=== PATIENT | male | born 1995 | race Caucasian/White ===

== ENCOUNTER 2017-08-23 19:20 | Emergency (ER) | payer OTHER ==
[2017-08-23 19:36] VITALS: BP 137/74
[2017-08-23] MEDS ORDERED: Ibuprofen TAB* 400 MG PO ONE (20:56)
--- NOTE | 2017-08-23 20:56 | UC ---
Throat Pain/Nasal Tree HPI - HPI Summary HPI Summary: 22 y/o male presents to the urgent care c/o sore throat, lack of appetite, chills and low grade fever since yesterday. Pt states pain w/ swallowing is 6/ 10. He took Motrin 2 tabs PO this morning at 1100 to alleviate symptoms. He also has a rash in the Rt side of upper lip w/ yellowish crusting. Pt denies THOMPSON , neck pain, dizziness, SOB, chest pain, abdominal pain, N/V/D. Pt is UTD w/ all vaccines for his age. - History of Current Complaint Chief Complaint: UCGeneralIllness Stated Complaint: SORE THROAT Time Seen by Provider: 08/23/17 20:38 Hx Obtained From: Patient Onset/Duration: Gradual Onset, Lasting Days - 2 days, Still Present, Worse Since - today Severity: Moderate Pain Intensity: 6 Pain Scale Used: 0-10 Numeric Cough: None Associated Signs & Symptoms: Positive: Dysphagia, Fever Related History: Seasonal Allergies - Epiglottits Risk Factors Epiglottis Risk Factors: Negative - Allergies/Home Medications Allergies/Adverse Reactions: Allergies Allergy/AdvReac Type Severity Reaction Status Date / Time No Known Allergies Allergy Unverified 08/23/17 19:37 Home Medications: Home Medications Methylphenidate TAB* [Ritalin TAB*] 20 mg PO DAILY PRN 08/23/17 [History Confirmed 08/23/17] PMH/Surg Hx/FS Hx/Imm Hx Previously Healthy: Yes Cardiovascular History: Hypertension Respiratory History: Asthma Other Respiratory History: allergic rhinitis Other Psychological History: ADHD - Surgical History Surgical History: Yes Surgery Procedure, Year, and Place: knee repair, 2017 - Family History Known Family History: Positive: Hypertension - Social History Occupation: Employed Full-time Lives: With Family Alcohol Use: Weekly Alcohol Amount: 8-12 each time. several times a week Substance Use Type: Marijuana Smoking Status (MU): Light Every Day Tobacco Smoker - Immunization History Vaccination Up to Date: Yes Review of Systems Constitutional: Fever Skin: Negative Eyes: Negative ENT: Sore Throat Respiratory: Negative Cardiovascular: Negative Gastrointestinal: Negative Genitourinary: Negative Motor: Negative Neurovascular: Negative Musculoskeletal: Negative Neurological: Negative Psychological: Negative Is Patient Immunocompromised?: No All Other Systems Reviewed And Are Negative: Yes Physical Exam - Summary Physical Exam Summary: VITAL SIGNS: Reviewed. GENERAL: Patient is a well developed and nourished male who is sitting comfortable in the examining table. Patient is not in any acute respiratory distress. HEAD AND FACE: No signs of trauma. No ecchymosis, hematomas or skull depressions. No sinus tenderness. EYES: PERRLA, EOMI x 2, No injected conjunctiva, no nystagmus. No photophobia. EARS: Hearing grossly intact. Ear canals and tympanic membranes are within normal limits. MOUTH: Positive pharynx with erythema, exudates, palatal petechiae. B/L tonsillar enlargement with exudate. Uvula in midline. NECK: Supple, trachea is midline, Positive anterior cervical lymphadenopathy, no JVD, no carotid bruit, no c-spine tenderness, neck with full ROM. No meningeal signs, no Kernig's or brudzinskis signs. CHEST: Symmetric, no tenderness at palpation LUNGS: Clear to auscultation bilaterally. No wheezing or crackles. CVS: Regular rate and rhythm, S1 and S2 present, no murmurs or gallops appreciated. ABDOMEN: Soft, non-tender. No signs of distention. No rebound no guarding, and no masses palpated. Bowel sounds are normal. EXTREMITIES: FROM in all major joints, no edema, no cyanosis or clubbing. NEURO: Alert and oriented x 3. No acute neurological deficits. Speech is normal and follows commands. SKIN: Dry and warm Triage Information Reviewed: Yes Vital Signs: Initial Vital Signs Temp 100.8 F 08/23/17 19:27 Pulse 90 08/23/17 19:27 Resp 16 08/23/17 19:27 BP 137/74 08/23/17 19:27 Pulse Ox 100 08/23/17 19:27 Throat Pain/Nasal Course/Dx - Course Course Of Treatment: 22 y/o male presents to the urgent care c/o sore throat, lack of appetite, chills and low grade fever since yesterday. Pt states pain w/ swallowing is 6/10. He took Motrin 2 tabs PO this morning at 1100 to alleviate symptoms. He also has a rash in the Rt side of upper lip w/ yellowish crusting. Pt denies THOMPSON, neck pain, dizziness, SOB, chest pain, abdominal pain, N /V/D. Pt is UTD w/ all vaccines for his age.Hx obtained. Pt febrile w/ pharyngitis and impetigo on Rt side of upper lip on examiantion. Pt given Ibuprofe PO at the clinic for fever. Pt tolerated well medication. Rapid strep ordered: negative. However Pt's throat look very injected w/ exudate. Throat culture ordered to r/o other bacterial etioogies like M.Catarralis etc. Pt Rx Amoxicillin PO and advised to take it only if symptoms worsen or until Throat culture results. Pt also Rx Ibuprofen Po to alleviate symptoms and bactroban for the rash. Advised on hand washing to avoid spreading. Pt advised to rest, eat well and avoid strenuous exercise. If symptoms do not improve or worsen advised to return to the urgent care or f/u with her PCP for further evaluation and treatment. Pt understood and agreed - Differential Dx/Diagnosis Differential Diagnosis/HQI/PQRI: Mononucleosis, Otitis Media, Pharyngitis, Sinusitis, Tonsillitis, URI Provider Diagnoses: 1-Pharyngitis. 2-Fever. 3-Impetigo Discharge - Sign-Out/Discharge Documenting (check all that apply): Discharge/Admit/Transfer - D/C home - Discharge Plan Condition: Stable Disposition: HOME Prescriptions: Amoxicillin PO (*) [Amoxicillin 500 MG CAP*] 500 mg PO Q12H #20 cap Ibuprofen TAB* [Motrin TAB* 800 MG] 800 mg PO Q6H PRN #30 tab PRN Reason: Sore Throat Mupirocin 2% OINT* [Bactroban 2 % Oint*] 1 applic TOPICAL BID #1 tube Mupirocin 2% OINT* [Bactroban 2 % Oint*] 1 applic TOPICAL BID #1 tube Patient Education Materials: Impetigo (DC), Pharyngitis (ED) Referrals: Stephen Gramajo MD [Primary Care Provider] - 2 Days Additional Instructions: 1- Please start taking Amoxicillin PO only if symptoms worsen or throat culture results are positive for bacterial infection. Throat culture was sent to lab you will be notified of the result.. 2-Please take ibuprofen PO q6-8hrs prn as instructed after meals to alleviate pain and swelling. Increase fluid intake, eat well, rest and avoid strenuous exercise 3-If symptoms do not improve or worsen please return to the urgent care or f/u with your PCP for further evaluation and treatment. 4- apply Bactroban oint around the rash in your lips - Billing Disposition and Condition Condition: STABLE Disposition: Home
--- NOTE | 2017-08-26 17:10 | UC ---
- Progress Note Progress Note: please call patient and advise that throat culture does not show strep infection --and antibiodics are not indicated Discharge - Sign-Out/Discharge Documenting (check all that apply): Post-Discharge Follow Up - Discharge Plan Condition: Stable Disposition: HOME Prescriptions: Amoxicillin PO (*) [Amoxicillin 500 MG CAP*] 500 mg PO Q12H #20 cap Ibuprofen TAB* [Motrin TAB* 800 MG] 800 mg PO Q6H PRN #30 tab PRN Reason: Sore Throat Mupirocin 2% OINT* [Bactroban 2 % Oint*] 1 applic TOPICAL BID #1 tube Mupirocin 2% OINT* [Bactroban 2 % Oint*] 1 applic TOPICAL BID #1 tube Patient Education Materials: Impetigo (DC), Pharyngitis (ED) Referrals: Stephen Gramajo MD [Primary Care Provider] - 2 Days Additional Instructions: 1- Please start taking Amoxicillin PO only if symptoms worsen or throat culture results are positive for bacterial infection. Throat culture was sent to lab you will be notified of the result.. 2-Please take ibuprofen PO q6-8hrs prn as instructed after meals to alleviate pain and swelling. Increase fluid intake, eat well, rest and avoid strenuous exercise 3-If symptoms do not improve or worsen please return to the urgent care or f/u with your PCP for further evaluation and treatment. 4- apply Bactroban oint around the rash in your lips - Billing Disposition and Condition Condition: STABLE Disposition: Home
== END 2017-08-23 22:03 | disposition home or self-care (01) ==
LOC: UCEAST 19:20
DX: J02.9 Acute pharyngitis, unspecified (principal); R50.9 Fever, unspecified; L01.00 Impetigo, unspecified; I10 Essential (primary) hypertension; F17.290 Nicotine dependence, other tobacco product, uncomplicated
CPT/HCPCS: 87070; 87651; 99212; A9270-GY; G0463

== ENCOUNTER 2017-08-26 17:30 | Observation (INO) | payer OTHER ==
[2017-08-26] MEDS ORDERED: NS 0.9% 1000 ML* 2,000 ML IV ONE (17:57)
[2017-08-26 18:10] LABS: ABS Basophils 0.1 10^3/ul (0-0.2); ABS Eosinophils 0 10^3/ul (0-0.6); ABS Lymphocytes 0.3 10^3/ul (1.0-4.8); ABS Monocytes 0.5 10^3/ul (0-0.8); ABS Neutrophils 19.5 10^3/ul (1.5-7.7); ABS Nucleated RBC 0 10^3/ul; Eosinophil % 0 % (0-6); Hematocrit 37 % (42-52); Hemoglobin 12.5 g/dl (14.0-18.0); Lymphocyte % 1.7 % (25-47); Mean Corpuscular HGB Conc 34 g/dl (31-36); Mean Corpuscular Hemoglobin 30 pg (27-31); Mean Corpuscular Volume 88 fL (80-94); Mean Platelet Volume 7.5 um3 (7.4-10.4); Nucleated Red Blood Cells % 0; Platelet Count 251 10^3/ul (150-450); Red Blood Count 4.19 10^6/ul (4.00-5.40); Red Cell Distribution Width 13 % (10.5-15); White Blood Count 20.4 10^3/ul (3.5-10.8)
[2017-08-26 18:20] LABS: INR 1.41 (0.77-1.02)
[2017-08-26 18:30] LABS: EGFR Non-African American 76.5 (>60)
[2017-08-26] MEDS ORDERED: Lidocaine 2% VISCOUS* 15 ML UDC SWISH SPIT ONE (18:57)
[2017-08-26] MEDS ORDERED: Ketorolac INJ* 30 MG/ML 1 ML VIAL IV PUSH ONE (18:57)
[2017-08-26] MEDS ORDERED: Clindamycin 600 MG IVPREMIX(* 600 MG/50 ML SDV IV ONE (18:58)
[2017-08-26] MEDS ORDERED: Bacitracin OINTMENT* 0.5% 0.5 oz TUBE TOPICAL SCH (22:00)
[2017-08-26] MEDS ORDERED: Ibuprofen TAB* 600 MG PO PRN (22:06)
[2017-08-26] MEDS: D5W 1/2 NS KCl 20 Meq 1000 ML* 1,000 ML IV SCH (22:17)
[2017-08-26] MEDS: Magic Mouth Was-BEN/MAAL/LIDO SWISH SPIT SCH (22:36)
[2017-08-26] MEDS: Mupirocin 2% OINT* TUBE TOPICAL SCH (22:41)
[2017-08-26] MEDS ORDERED: cefTRIAXone VIAL(*) 250 MG VIAL IM ONE (22:48)
[2017-08-26] MEDS ORDERED: Azithromycin TAB* 250 MG PO ONE (22:58)
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
[2017-08-27] MEDS: D5W 1/2 NS KCl 20 Meq 1000 ML* 1,000 ML IV SCH ×3 (02:14→12:46)
[2017-08-27 06:54] LABS: EGFR Non-African American 116.5 (>60)
[2017-08-27] MEDS ORDERED: Clindamycin 600 MG IVPREMIX(* 600 MG/50 ML SDV IV SCH (07:30)
[2017-08-27] MEDS ORDERED: predniSONE TAB* 50 MG PO SCH (09:00)
[2017-08-27] MEDS: Magic Mouth Was-BEN/MAAL/LIDO SWISH SPIT SCH ×3 (09:32→16:49)
[2017-08-27] MEDS: Mupirocin 2% OINT* TUBE TOPICAL SCH ×3 (09:37→16:49)
[2017-08-27] MEDS: Clindamycin 600 MG IVPREMIX(* 600 MG/50 ML SDV IV SCH ×2 (14:17→18:45)
[2017-08-27 17:16] VITALS: BP 153/69
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
[2017-08-27] MEDS ORDERED: Ciprofloxacin TAB* 500 MG PO SCH (21:00)
== END 2017-08-27 19:44 | disposition home or self-care (01) ==
LOC: ED 17:30 → MCHPEDS 19:35
PROVIDERS: ADMIT Pediatrics; ATTEND Pediatrics
DX: J36 Peritonsillar abscess (principal); E86.0 Dehydration; K13.70 Unspecified lesions of oral mucosa; Z72.51 High risk heterosexual behavior; R50.9 Fever, unspecified; R25.2 Cramp and spasm; R53.83 Other fatigue; F17.210 Nicotine dependence, cigarettes, uncomplicated; R59.9 Enlarged lymph nodes, unspecified; J45.20 Mild intermittent asthma, uncomplicated; F90.9 Attention-deficit hyperactivity disorder, unspecified type; Z79.899 Other long term (current) drug therapy
CPT/HCPCS: 36415; 80048; 80053; 80074; 83605; 85025; 85610; 85730; 86140; 86308; 86592; 87040; 87076; 87181; 87185; 87205; 87491; 87536; 87591; 96361; 96365; 96366; 96372; 96375; 99284; 99406; A9270-GY; G0378; J0696; J1885; J7512

== ENCOUNTER 2018-01-02 23:48 | Inpatient (IN) | payer OTHER ==
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
[2018-01-03] MEDS ORDERED: Haloperidol INJ IV/IM* 5 MG/ML AMP ONE (00:50)
[2018-01-03] MEDS ORDERED: LORazepam INJ* 2 MG/ML 1 ML VIAL ONE (00:50)
[2018-01-03] MEDS ORDERED: diPHENhydraMINE PO* 50 MG ONE (00:50)
[2018-01-03] MEDS ORDERED: Nicotine PATCH 21 MG/24 HR* PATCH ONE (00:57)
[2018-01-03] MEDS ORDERED: diPHENhydraMINE PO* 50 MG PO ONE (00:59)
[2018-01-03] MEDS ORDERED: Haloperidol INJ IV/IM* 5 MG/ML AMP IM ONE (00:59)
[2018-01-03] MEDS ORDERED: LORazepam INJ* 2 MG/ML 1 ML VIAL IM ONE (00:59)
[2018-01-03] MEDS ORDERED: Mouth Piece, Nicotine* 1 EACH CARTRIDGE ONE (01:02)
[2018-01-03] MEDS ORDERED: Nicotine Inhaler* 10 MG AMP ONE (01:03)
[2018-01-03] MEDS: Nicotine Inhaler* 10 MG AMP INH PRN (01:09)
[2018-01-03 01:23] LABS: ABS Basophils 0.1 10^3/ul (0-0.2); ABS Eosinophils 0.1 10^3/ul (0-0.6); ABS Lymphocytes 1.6 10^3/ul (1.0-4.8); ABS Monocytes 0.7 10^3/ul (0-0.8); ABS Neutrophils 8.9 10^3/ul (1.5-7.7); ABS Nucleated RBC 0 10^3/ul; Eosinophil % 1.2 % (0-6); Hematocrit 40 % (42-52); Hemoglobin 13.6 g/dl (14.0-18.0); Lymphocyte % 13.9 % (25-47); Mean Corpuscular HGB Conc 34 g/dl (31-36); Mean Corpuscular Hemoglobin 30 pg (27-31); Mean Corpuscular Volume 88 fL (80-94); Mean Platelet Volume 7.6 fL (7.4-10.4); Nucleated Red Blood Cells % 0; Platelet Count 256 10^3/ul (150-450); Red Blood Count 4.57 10^6/ul (4.00-5.40); Red Cell Distribution Width 13 % (10.5-15); White Blood Count 11.4 10^3/ul (3.5-10.8)
[2018-01-03] MEDS ORDERED: Mouth Piece, Nicotine* 1 EACH CARTRIDGE INH ONE (02:00)
[2018-01-03 06:05] LABS: Urine Appearance Cloudy; Urine Blood Negative (Negative); Urine Color Yellow; Urine Ketones Trace (Negative); Urine Protein 1+(30 mg/dL) (Negative); Urine Red Blood Cell Trace(0-2/hpf) (Absent); Urine Specific Gravity 1.033 (1.010-1.030); Urine Urobilinogen Negative (Negative); Urine White Blood Cell Trace(0-5/hpf) (Absent)
[2018-01-03] MEDS ORDERED: OLANzapine TAB*ODT* 10 MG TAB PO ONE ×2 (11:47→17:06)
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
--- NOTE | 2018-01-03 17:18 | RAD ---
INDICATION: Head injury COMPARISON: None. TECHNIQUE: Contiguous axial sections of the brain were obtained from the skull base to the vertex without contrast. FINDINGS: The ventricles, cisterns and sulci are within normal limits. The gustafson-white matter differentiation is adequately maintained and there is no sulcal effacement. No significant focal abnormality or mass effect is present. There is no evidence for intracranial hemorrhage. No significant focal osseous abnormality is present. The visualized portion of the paranasal sinuses appear clear. The mastoid air cells are well aerated bilaterally. IMPRESSION: Normal CT of the brain.
[2018-01-03] MEDS: QUEtiapine TAB* 100 MG PO SCH (19:57)
--- NOTE | 2018-01-04 06:36 | ED ---
Progress - Progress Note Progress Note: The pt is a 22 y.o male pt who is a sign out from Dr. Allison. Course/Dx - Course Course Of Treatment: The pt will be signed out to Dr. Allison, pending MHE and Trasnfer disposition. The dx will be aggressive behavior. - Diagnoses Provider Diagnoses: Aggressive behavior Discharge - Sign-Out/Discharge Documenting (check all that apply): Sign-Out Patient, Receiving Sign-Out Signing out patient TO: Demarco Allison Receiving patient FROM: Demarco Allison - Discharge Plan Condition: Stable Referrals: Stephen Gramajo MD [Primary Care Provider] - - Attestation Statements Document Initiated by Scribe: Yes Documenting Scribe: Brigido Duran Provider For Whom Scribe is Documenting (Include Credential): Dr. Consuelo Cameron Scribe Attestation: Brigido Jauregui, scribed for Dr. Consuelo Cameron on 01/04/18 at 0639.
--- NOTE | 2018-01-04 07:08 | ED ---
Progress - Progress Note Progress Note: 01/02/2018 The pt is a 22 y.o male pt who is a sign out from Dr. Allison. 01/03/2018 07:00 hrs- Receiving pt sign out from Dr. Nisha MD due to pending MHE Dr. Perry evaluated the pt in the MHU 11:50-The pt will be admitted to the [facility] with a final Dx of unspecified psychotic disorder - Consult/PCP Time Called: 10:03 Re-Evaluation - Re-Evaluation 1 Re-Evaluation Time: 02:05 Change: Improved - He is now resting comfortably. 2 Re-Evaluation Time: 04:23 Change: Improved - Patient continues to rest with stable vital signs. Course/Dx - Diagnoses Provider Diagnoses: Aggressive behavior, Unspecified psychosis Discharge - Sign-Out/Discharge Documenting (check all that apply): Sign-Out Patient Receiving patient FROM: Consuelo Cameron - 07:00 hrs - Discharge Plan Condition: Stable Disposition: ADMITTED TO [facility] Referrals: Stephen Gramajo MD [Primary Care Provider] - - Attestation Statements Document Initiated by Scribe: Yes Documenting Scribe: Jessie Nunez Provider For Whom Scribe is Documenting (Include Credential): Dr. Demarco Allison MD Scribe Attestation: Jessie Jauregui scribed for Dr. Demarco Allison MD on 01/04/18 at 1201.
[2018-01-04] MEDS ORDERED: Al Hydrox/Mg Hydrox/Simet LIQ* 30 ML UDC PO PRN (11:16)
[2018-01-04] MEDS ORDERED: Acetaminophen TAB* 325 MG PO PRN (11:16)
[2018-01-04] MEDS ORDERED: Ibuprofen TAB* 800 MG PO PRN (11:17)
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
[2018-01-04] MEDS: QUEtiapine TAB* 100 MG PO SCH (22:42)
[2018-01-04] MEDS: Propranolol TAB* 20 MG PO SCH (22:42)
[2018-01-05] MEDS: Propranolol TAB* 20 MG PO SCH ×2 (11:14→23:13)
[2018-01-05] MEDS: Nicotine Inhaler* 10 MG AMP INH PRN ×2 (13:57→20:42)
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
[2018-01-05] MEDS ORDERED: LORazepam TAB(*) 1 MG PO PRN (17:13)
[2018-01-05] MEDS: QUEtiapine TAB* 100 MG PO SCH (23:14)
[2018-01-06] MEDS: Nicotine Inhaler* 10 MG AMP INH PRN ×2 (00:40→13:42)
[2018-01-06 08:53] VITALS: BP 154/88
[2018-01-06] MEDS: Propranolol TAB* 20 MG PO SCH (08:55)
[2018-01-06] MEDS ORDERED: QUEtiapine XR TAB* 50 MG PO ONE (12:40)
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
== END 2018-01-06 17:50 | disposition home or self-care (01) | DRG 885 ==
LOC: ED 23:48 → BSU 01-04 11:16
PROVIDERS: ADMIT Psychiatry & Neurology Psychiatry; ATTEND Psychiatry & Neurology Psychiatry
DX: F29 Unspecified psychosis not due to a substance or known physiological condition (principal); R45.851 Suicidal ideations; F63.9 Impulse disorder, unspecified; F81.89 Other developmental disorders of scholastic skills; F90.9 Attention-deficit hyperactivity disorder, unspecified type; F12.10 Cannabis abuse, uncomplicated; F41.1 Generalized anxiety disorder; Z87.820 Personal history of traumatic brain injury; F10.10 Alcohol abuse, uncomplicated; J30.2 Other seasonal allergic rhinitis; Z81.8 Family history of other mental and behavioral disorders; R45.850 Homicidal ideations
CPT/HCPCS: 36415; 70450; 80053; 80061; 80307; 80320; 80329; 81003; 81015; 83036; 84443; 85025; 87086; 93005; 99222; 99238; 99284; A9270-GY; G0480; J1630; J2060

== ENCOUNTER 2018-04-20 19:00 | Inpatient (IN) | payer OTHER ==
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
[2018-04-20 19:39] LABS: ABS Basophils 0 10^3/ul (0-0.2); ABS Eosinophils 0.2 10^3/ul (0-0.6); ABS Lymphocytes 1.7 10^3/ul (1.0-4.8); ABS Monocytes 0.4 10^3/ul (0-0.8); ABS Neutrophils 3.6 10^3/ul (1.5-7.7); ABS Nucleated RBC 0 10^3/ul; Eosinophil % 3.3 %; Hematocrit 41 % (42-52); Hemoglobin 13.5 g/dl (14.0-18.0); Mean Corpuscular HGB Conc 33 g/dl (31-36); Mean Corpuscular Hemoglobin 30 pg (27-31); Mean Corpuscular Volume 89 fL (80-94); Mean Platelet Volume 7.8 fL (7.4-10.4); Nucleated Red Blood Cells % 0.1; Platelet Count 218 10^3/ul (150-450); Red Blood Count 4.57 10^6/ul (4.00-5.40); Red Cell Distribution Width 13 % (10.5-15)
[2018-04-20 19:56] LABS: ALT 48 U/L (7-52); AST 70 U/L (13-39); Albumin 4.5 g/dL (3.2-5.2); Albumin/Globulin Ratio 1.7 (1-3); Alkaline Phosphatase 55 U/L (34-104); Anion Gap 6 mmol/L (2-11); BUN/Creatinine Ratio 22.7 (8-20); Blood Urea Nitrogen 25 mg/dL (6-24); CO2 Carbon Dioxide 28 mmol/L (22-32); Calcium 9.4 mg/dL (8.6-10.3); Chloride 105 mmol/L (101-111); EGFR African American 103.3 (>60); EGFR Non-African American 85.3 (>60); Globulin 2.7 g/dL (2-4); Glucose 114 mg/dL (70-100); Sodium 139 mmol/L (135-145); Total Protein 7.2 g/dL (6.4-8.9)
[2018-04-20 20:30] LABS: Acetaminophen < 15 mcg/mL; Alcohol < 10 mg/dL (<10); Salicylate < 2.50 mg/dL (<30)
[2018-04-20 20:44] LABS: TSH (Thyroid Stimulating Horm) 2.51 mcIU/mL (0.34-5.60)
[2018-04-20] MEDS ORDERED: Nicotine Inhaler* 10 MG AMP INH ONE (21:40)
[2018-04-20] MEDS ORDERED: Mouth Piece, Nicotine* 1 EACH CARTRIDGE ONE (21:51)
[2018-04-20 22:35] LABS: Urine Appearance Clear; Urine Bilirubin Negative (Negative); Urine Blood Negative (Negative); Urine Color Yellow; Urine Glucose Negative (Negative); Urine Ketones Negative (Negative); Urine Nitrite Negative (Negative); Urine Protein Negative (Negative); Urine Specific Gravity 1.025 (1.010-1.030); Urine Urobilinogen Negative (Negative)
[2018-04-20 22:47] LABS: Barbiturates Urine Screen None Detected (None Detect); Benzodiazepine Urine Screen None Detected (None Detect); Urine Cannabinoids Screen None Detected (None Detect)
[2018-04-20] MEDS ORDERED: diPHENhydraMINE IV* 50 MG/ML 1 ml VIAL (BENADRYL) ONE (22:57)
[2018-04-20] MEDS ORDERED: LORazepam INJ* 2 MG/ML 1 ML VIAL IM ONE (22:58)
[2018-04-20] MEDS ORDERED: Haloperidol INJ IV/IM* 5 MG/ML AMP IM ONE (22:58)
[2018-04-20] MEDS ORDERED: hydrOXYzine IM* 50 MG/ML VIAL IM ONE (22:59)
[2018-04-20] MEDS ORDERED: LORazepam INJ* 2 MG/ML 1 ML VIAL ONE (23:05)
[2018-04-20] MEDS ORDERED: Haloperidol INJ IV/IM* 5 MG/ML AMP ONE (23:05)
[2018-04-20] MEDS ORDERED: Nicotine Inhaler* 10 MG AMP ONE (23:09)
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
[2018-04-20] MEDS ORDERED: diPHENhydraMINE IV* 50 MG/ML 1 ml VIAL (BENADRYL) IM ONE (23:24)
--- NOTE | 2018-04-21 07:14 | ED ---
Progress - Progress Note Progress Note: Receiving sign out from Dr. Cameron, pending transfer. Pt is admitted to Dr. Perry with a final dx of acute psychosis. Course/Dx - Diagnoses Provider Diagnoses: Acute psychosis - Provider Notifications Discussed Care Of Patient With: Ar Perry Time Discussed With Above Provider: 09:57 Instructed by Provider To: Admit As Inpatient Discharge - Sign-Out/Discharge Documenting (check all that apply): Patient Departure - Admit, Receiving Sign- Out Receiving patient FROM: Consuelo Cameron Patient Received Moderate/Deep Sedation with Procedure: No - Discharge Plan Condition: Stable [place] Referrals: Stephen Gramajo MD [Primary Care Provider] - - Attestation Statements Document Initiated by Scribe: Yes Documenting Scribe: Shy Jay Provider For Whom Scribe is Documenting (Include Credential): Tevin Lui MD Scribe Attestation: Shy Jauregui, scribed for Tevin Lui MD on 04/21/18 at 1000. Status of Scribe Document: Ready
[2018-04-21] MEDS ORDERED: Al Hydrox/Mg Hydrox/Simet LIQ* 30 ML UDC PO PRN (09:10)
[2018-04-21] MEDS ORDERED: Acetaminophen TAB* 325 MG PO PRN (09:10)
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
[2018-04-21] MEDS ORDERED: Propranolol TAB* 10 MG PO SCH (15:00)
[2018-04-21] MEDS ORDERED: OLANzapine TAB* 2.5 MG PO ONE (15:41)
[2018-04-21] MEDS ORDERED: Nicotine Inhaler* 10 MG AMP INH PRN (16:43)
[2018-04-21] MEDS ORDERED: Nicotine GUM* 2 MG PO PRN (16:43)
[2018-04-21] MEDS ORDERED: OLANzapine TAB* 5 MG PO SCH (21:00)
[2018-04-21] MEDS: OLANzapine TAB* 2.5 MG PO SCH (22:28)
[2018-04-21] MEDS: Propranolol TAB* 10 MG PO SCH (22:29)
--- NOTE | 2018-04-22 10:30 | PN ---
Subjective - Subjective Date of Service: 04/22/18 Service Type: 70737 Hosp care 35 min high complexity Subjective: Nursing Report: Patient most secluded to his room, no chemical restraints or PRNs. Slept overnight without incident. NOT attending group activities. CC: " I refuse to take medications" Patient refusing to shower despite significant body odor. Contact with mother was made. She is refusing to accept that there is something wrong with Viridiana and reported that he will fight until the end if he has to take medications. She mentioned that he will fight so much that he will be in detention. Mother stated he is not violent and said that being in the hospital made him punch and kicks things in the emergency room. Mother reported putting risperdal in his juice because he would refuse to take medications. Patient was interviewed in his room and also in the common room. Patient stated that he wishes he was playing hockey and doesnt need to be in the hospital. He reported having an adequate appetite and sleep. Patient refused EEG this morning. He has been inappropriate with female staff. Objective - Appearance Dysmorphic Features: No Hygiene: Mal-odorous Grooming: Disheveled - Behavior Psychomotor Activities: Abnormal-Increased Exhibits Abnormal Movement: Yes - Attitude and Relatedness Attitude and Relatedness: Withdrawn Eye Contact: Poor - Speech Quality: Unpressured Latencies: Short Quantity: Terse - Mood Patient's Decription of Mood: "Okay" - Affect Observed Affect: Constricted Affect Consistent with: Dysphoria - Thought Process Patient's Thought Process: Loose Associations, Tangential Thought Content: No Passive Wish, No Suicidal Planning, No Homicidal Ideation, No Paranoid Ideation - Sensorium Experiencing Hallucinations: Yes Type of Hallucinations: Visual: No, Auditory: Yes, Command: No - Level of Consciousness Level of Consciousness: Alert Orientation: Yes Intact, Yes Orientated to Time, Yes Orientated to Place, Yes Orientated to Person - Impulse Control Impulse Control: Impaired - Insight and Judgement Insight and Judgement: Impaired - Group Participation Particating in Group Activities: No - Medication Management Medication Management Adherence: No Assessment - Assessment Merits Inpatient Hospitalization: For Immediate Safety Clinical Impression: 22 year old male with prior hospitalization and refusing medications, refusing to shower, acting bizarre responding to internal stimuli Plan - Plan Treatment Plan: Name: VIRIDIANA ROJO Birthdate: 1995 [id number] # Justification for Admission: For immediate safety per outlined in the [facility] Hygiene Code. # Involuntary admission. The patient requires inpatient admission at this time to assure safety, receive treatment and work toward stabilization. # Ammonia and AST levels increased medicine consulted and recommend hepatitis panel #Continue Q15 minute observation. #Continue propranolol 5mg TID #Increase Zyprexa 5mg BID #Encourage shower #Goals before discharge include: Improve Hygiene, increase organization of thought process. Continued Medication Management: Start Medication Medications: Current Medications Acetaminophen (Tylenol Tab*) 650 mg PO Q4H PRN PRN Reason: for pain; or Temp >101 F Al Hydrox/Mg Hydrox/Simethicone (Maalox Plus*) 30 ml PO Q4H PRN PRN Reason: INDIGESTION Diphenhydramine HCl (Benadryl Po*) 50 mg PO Q6H PRN PRN Reason: AGITATION Haloperidol (Haldol Tab*) 5 mg PO Q6H PRN PRN Reason: AGITATION Lorazepam (Ativan Tab(*)) 2 mg PO Q6H PRN PRN Reason: ANXIETY Nicotine (Nicotine Inhaler*) 10 mg INH Q2H PRN PRN Reason: CRAVING Nicotine Polacrilex (Nicotine Gum*) 2 mg PO Q2H PRN PRN Reason: CRAVING Olanzapine (Zyprexa Tab*) 2.5 mg PO BID [facility] Last Admin: 04/21/18 22:28 Dose: Not Given Propranolol HCl (Inderal Tab*) 5 mg PO TID [facility] Last Admin: 04/21/18 22:29 Dose: Not Given - Discharge Plan Discharge Plan: Inpatient Hospitalization
[2018-04-22] MEDS: Propranolol TAB* 10 MG PO SCH ×3 (10:36→20:48)
[2018-04-22] MEDS: OLANzapine TAB* 2.5 MG PO SCH (10:36)
[2018-04-22] MEDS: diPHENhydraMINE PO* 50 MG PO PRN (18:56)
[2018-04-22] MEDS: LORazepam TAB(*) 1 MG PO PRN (18:57)
[2018-04-22] MEDS: Haloperidol TAB* 5 MG PO PRN (18:57)
[2018-04-22] MEDS: OLANzapine TAB* 5 MG PO SCH (20:48)
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
[2018-04-23] MEDS: OLANzapine TAB* 5 MG PO SCH ×2 (11:21→20:56)
[2018-04-23] MEDS: Propranolol TAB* 10 MG PO SCH ×3 (11:21→20:56)
[2018-04-23 11:22] LABS: Folate 11.15 ng/mL (>3.99)
[2018-04-23 12:46] LABS: Hepatitis B Surface Antigen Nonreactive (Nonreactive)
[2018-04-23 13:15] LABS: Hepatitis C Antibody Nonreactive (Nonreactive)
[2018-04-24] MEDS: OLANzapine TAB* 5 MG PO SCH (12:04)
[2018-04-24] MEDS: Propranolol TAB* 10 MG PO SCH ×3 (12:04→20:41)
[2018-04-24] MEDS ORDERED: OLANzapine TAB*ODT* 10 MG TAB ONE (15:53)
[2018-04-24] MEDS ORDERED: OLANzapine TAB* 10 MG PO ONE (16:15)
[2018-04-24] MEDS ORDERED: Olanzapine INJ(NF) 10 MG VIAL IM ONE (17:00)
[2018-04-24] MEDS ORDERED: LORazepam INJ* 2 MG/ML 1 ML VIAL ONE (17:44)
[2018-04-24] MEDS ORDERED: diPHENhydraMINE IV* 50 MG/ML 1 ml VIAL (BENADRYL) ONE (17:45)
[2018-04-24] MEDS ORDERED: Haloperidol INJ IV/IM* 5 MG/ML AMP ONE (17:45)
[2018-04-24] MEDS ORDERED: Haloperidol INJ IV/IM* 5 MG/ML AMP IM ONE (18:30)
[2018-04-24] MEDS ORDERED: LORazepam INJ* 2 MG/ML 1 ML VIAL IM ONE (18:30)
[2018-04-24] MEDS ORDERED: diPHENhydraMINE IV* 50 MG/ML 1 ml VIAL (BENADRYL) IM ONE (18:30)
[2018-04-24] MEDS: OLANzapine TAB*ODT* 5 MG PO SCH (20:45)
[2018-04-25] MEDS: OLANzapine TAB*ODT* 5 MG PO SCH ×2 (11:50→21:27)
[2018-04-25] MEDS: Propranolol TAB* 10 MG PO SCH ×3 (11:50→21:27)
--- NOTE | 2018-04-25 18:08 | PN ---
Subjective - Subjective Date of Service: 04/24/18 Service Type: [id number] Hosp care 15 min low complexity Subjective: Viridiana has been a serious management problem on the unit due to physically and verbally aggressive behaviors requiring multiple stat meds. He had scared female staffs and patients by attempting to inappropriate sexual contacts. Continues to respond to internal stimuli and talks to self loudly while in the milieu. His personal hygiene is very poor with strong body odors. Punched the olivera making holes. Remains a serious risk for violence. Objective - Appearance Appearance: Well Developed/Nourished, Healthy Appearing Dysmorphic Features: No Hygiene: Mal-odorous Grooming: Disheveled - Behavior Psychomotor Activities: Abnormal-Increased Exhibits Abnormal Movement: No - Attitude and Relatedness Attitude and Relatedness: Dismissive Eye Contact: Poor - Speech Quality: Pressured Latencies: Short Quantity: Terse - Mood Patient's Decription of Mood: "Angry" - Affect Observed Affect: Tense - Thought Process Patient's Thought Process: Disorganized, Tangential Thought Content: Yes Paranoid Ideation, No Passive Wish, No Suicidal Planning, No Homicidal Ideation - Sensorium Experiencing Hallucinations: Yes Type of Hallucinations: Visual: No, Auditory: Yes, Command: Yes - Level of Consciousness Level of Consciousness: Alert Orientation: Yes Orientated to Place, Yes Orientated to Person, No Intact, No Orientated to Time - Impulse Control Impulse Control: Impaired - Insight and Judgement Insight and Judgement: Impaired - Group Participation Particating in Group Activities: No - Medication Management Medication Management Adherence: No Assessment - Assessment Merits Inpatient Hospitalization: For Immediate Safety, For Stabilization Clinical Impression: 22 year old male with prior hospitalization and refusing medications brought to the hospital after mobile crisis unit was called. He is refusing medications, to shower, and is responding to internal stimuli. In the ED he punched cardiac monitors and last evening punched a hole in the wall. Plan - Plan Treatment Plan: Name: VIRIDIANA ROOJ Birthdate: 1995 [id number] # Patient poses a risk of harm towards others The patient requires inpatient admission at this time to assure safety, receive treatment and work toward stabilization. # Hepatitis panel and Vit B12 and folate. Medicine was consulted and recommends no further work up and suggested outpatient follow up with PCP. #Continue Q15 minute observation. #Continue propranolol 5mg TID # Continue Zyprexa 5mg BID #Follow up on lab results B12, folate, HIV, Hepatitis panel #Mother expected to come today for family meeting around noon #Encourage shower and medication compliance #Goals before discharge include: Decrease aggression, improve activities of daily living, medication compliance . Vital Signs 04/22/18 04/22/18 04/22/18 11:32 18:56 18:57 Respiratory 16 20 20 Rate 04/22/18 23:49 Respiratory 18 Rate Laboratory Results - last 24 hr 04/22/18 04/22/18 04/22/18 07:26 07:26 07:26 Hemoglobin A1c 5.4 Triglycerides 106 Cholesterol 169 LDL Cholesterol 102 HDL Cholesterol 46.0 Syphilis IgG Antibody Nonreactive Continued Medication Management: Continue Outpt Medication Medications: Current Medications Acetaminophen (Tylenol Tab*) 650 mg PO Q4H PRN PRN Reason: for pain; or Temp >101 F Al Hydrox/Mg Hydrox/Simethicone (Maalox Plus*) 30 ml PO Q4H PRN PRN Reason: INDIGESTION Diphenhydramine HCl (Benadryl Po*) 50 mg PO Q6H PRN PRN Reason: AGITATION Last Admin: 04/22/18 18:56 Dose: 50 mg Haloperidol (Haldol Tab*) 5 mg PO Q6H PRN PRN Reason: AGITATION Last Admin: 04/22/18 18:57 Dose: 5 mg Lorazepam (Ativan Tab(*)) 2 mg PO Q6H PRN PRN Reason: ANXIETY Last Admin: 04/22/18 18:57 Dose: 2 mg Nicotine (Nicotine Inhaler*) 10 mg INH Q2H PRN PRN Reason: CRAVING Nicotine Polacrilex (Nicotine Gum*) 2 mg PO Q2H PRN PRN Reason: CRAVING Olanzapine (Zyprexa * Tab Odt) 5 mg PO BID [facility] Last Admin: 04/25/18 11:50 Dose: Not Given Propranolol HCl (Inderal Tab*) 5 mg PO TID [facility] Last Admin: 04/25/18 14:16 Dose: Not Given - Discharge Plan Discharge Plan: Outpatient Follow Up Outpatient Program: [facility]
[2018-04-26] MEDS: OLANzapine TAB*ODT* 5 MG PO SCH ×2 (09:40→21:32)
[2018-04-26] MEDS: Propranolol TAB* 10 MG PO SCH ×3 (09:40→21:32)
--- NOTE | 2018-04-26 10:49 | PN ---
Subjective - Subjective Date of Service: 04/26/18 Service Type: [id number] Hosp care 25 min moderate complexity Subjective: CC " I am not taking medications." Patient was seen in the common room. He is refusing medications. Over the weekend he punched a hole in the wall during the time his parents were visiting. He changed his clothing over the weekend. He refused taking a shower or interacting with others. He was sexually inappropriate with female staff requesting oral sex and attempting to kiss female staff member. At this time he is refusing to answer further questions. Objective - Appearance Appearance: Healthy Appearing Dysmorphic Features: No Hygiene: Mal-odorous Grooming: Disheveled - Behavior Psychomotor Activities: Abnormal-Increased Exhibits Abnormal Movement: No - Attitude and Relatedness Attitude and Relatedness: Guarded Eye Contact: Poor - Speech Quality: Unpressured Latencies: Long Quantity: Terse - Mood Patient's Decription of Mood: "Angry" - Affect Observed Affect: Constricted Affect Consistent with: Dysphoria - Thought Process Patient's Thought Process: Disorganized Thought Content: Yes Paranoid Ideation, No Passive Wish, No Suicidal Planning, No Homicidal Ideation - Sensorium Experiencing Hallucinations: Yes Type of Hallucinations: Auditory: Yes, Command: No - Level of Consciousness Level of Consciousness: Alert Orientation: Yes Intact, Yes Orientated to Time, Yes Orientated to Place - Impulse Control Impulse Control: Impaired - Insight and Judgement Insight and Judgement: Impaired - Group Participation Particating in Group Activities: No - Medication Management Medication Management Adherence: No Assessment - Assessment Clinical Impression: 22 year old male with prior hospitalization and refusing medications brought to the hospital after mobile crisis unit was called. He is refusing medications, to shower, and is responding to internal stimuli. He punched a hole in the wall over the weekend and has been inappropriate with female staff. Plan - Plan Treatment Plan: Name: VIRIDIANA ROJO Birthdate: 1995 [id number] # The patient requires inpatient admission at this time to assure safety, receive treatment and work toward stabilization. # AST 40 and Hepatitis panel is negative #Continue Q15 minute observation. #Continue propranolol 5mg TID # Continue Zyprexa 5mg BID # Limit family visits as this seems to be a trigger for aggression. # File treatment over objection #Encourage shower and medication compliance #Goals before discharge include: Decrease aggression, improve activities of daily living, medication compliance . Vital Signs Temp Pulse Resp BP Pulse Ox 97.4 F 79 16 155/78 100 04/26/18 07:24 04/26/18 07:24 04/26/18 07:24 04/26/18 07:24 04/26/18 07:24 Sodium 139 mmol/L (135-145) 04/20/18 19:28 Potassium 4.0 mmol/L (3.5-5.0) 04/20/18 19:28 BUN 25 mg/dL (6-24) H 04/20/18 19:28 Creatinine 1.10 mg/dL (0.67-1.17) 04/20/18 19:28 Hemoglobin A1c 5.4 % (4.0-5.6) 04/22/18 07:26 Calcium 9.4 mg/dL (8.6-10.3) 04/20/18 19:28 AST 40 U/L (13-39) H 04/26/18 07:41 ALT 48 U/L (7-52) 04/20/18 19:28 Triglycerides 106 mg/dL 04/22/18 07:26 Cholesterol 169 mg/dL 04/22/18 07:26 LDL Cholesterol 102 mg/dL 04/22/18 07:26 Continued Medication Management: Start Medication Medications: Current Medications Acetaminophen (Tylenol Tab*) 650 mg PO Q4H PRN PRN Reason: for pain; or Temp >101 F Al Hydrox/Mg Hydrox/Simethicone (Maalox Plus*) 30 ml PO Q4H PRN PRN Reason: INDIGESTION Diphenhydramine HCl (Benadryl Po*) 50 mg PO Q6H PRN PRN Reason: AGITATION Last Admin: 04/22/18 18:56 Dose: 50 mg Haloperidol (Haldol Tab*) 5 mg PO Q6H PRN PRN Reason: AGITATION Last Admin: 04/22/18 18:57 Dose: 5 mg Lorazepam (Ativan Tab(*)) 2 mg PO Q6H PRN PRN Reason: ANXIETY Last Admin: 04/22/18 18:57 Dose: 2 mg Nicotine (Nicotine Inhaler*) 10 mg INH Q2H PRN PRN Reason: CRAVING Nicotine Polacrilex (Nicotine Gum*) 2 mg PO Q2H PRN PRN Reason: CRAVING Olanzapine (Zyprexa * Tab Odt) 5 mg PO BID [facility] Last Admin: 04/26/18 09:40 Dose: Not Given Propranolol HCl (Inderal Tab*) 5 mg PO TID [facility] Last Admin: 04/26/18 09:40 Dose: Not Given - Discharge Plan Discharge Plan: Inpatient Hospitalization
[2018-04-27] MEDS: Propranolol TAB* 10 MG PO SCH ×3 (08:27→19:54)
[2018-04-27] MEDS: OLANzapine TAB*ODT* 5 MG PO SCH ×2 (08:27→19:54)
--- NOTE | 2018-04-27 08:48 | PN ---
Subjective - Subjective Date of Service: 04/27/18 Service Type: [id number] Hosp care 35 min high complexity Subjective: Nursing Report: Patient was visible on unit, no chemical restraints or PRNs. Slept overnight without incident. He is not attending group activities. CC: " I will not take medications" Patient was seen and evaluated by this provider in the common room. The patient reported that there is no such thing as going to court for not taking medications. He reported that if he goes to court he will tell them to "suck my david ". He continues to refuse medications. He was offered a x-ray of his hand and refused. He reported having an adequate appetite and sleep. The patient did participate in yoga class today. The patient is refusing to shower. Per nursing no behavioral issues or overnight events reported. Objective - Appearance Appearance: Healthy Appearing Dysmorphic Features: No Hygiene: Mal-odorous Grooming: Disheveled - Behavior Exhibits Abnormal Movement: No - Attitude and Relatedness Attitude and Relatedness: Withdrawn Eye Contact: Poor - Speech Quality: Unpressured Latencies: Long Quantity: Terse - Mood Patient's Decription of Mood: "Irritable" - Affect Observed Affect: Constricted Affect Consistent with: Dysphoria - Thought Process Patient's Thought Process: Disorganized Thought Content: Yes Paranoid Ideation, No Passive Wish, No Suicidal Planning, No Homicidal Ideation - Sensorium Experiencing Hallucinations: Yes Type of Hallucinations: Visual: No, Auditory: Yes, Command: No - Level of Consciousness Level of Consciousness: Alert Orientation: Yes Intact, Yes Orientated to Time, Yes Orientated to Place, Yes Orientated to Person - Impulse Control Impulse Control: Impaired - Insight and Judgement Insight and Judgement: Impaired - Group Participation Particating in Group Activities: No - Medication Management Medication Management Adherence: No Assessment - Assessment Merits Inpatient Hospitalization: For Immediate Safety Clinical Impression: 22 year old male with prior hospitalization and refusing medications brought to the hospital after mobile crisis unit was called. He is refusing medications, to shower, and is responding to internal stimuli. Plan - Plan Treatment Plan: Name: VIRIDIANA ROJO Birthdate: 1995 [id number] # The patient requires inpatient admission at this time to assure safety, receive treatment and work toward stabilization. #Continue Q15 minute observation. #Continue propranolol 5mg TID # Continue Zyprexa 5mg BID # Limit family visits as this seems to be a trigger for acting out. Family is in agreement with plan. # File treatment over objection paperwork #Encourage shower and medication compliance #Offered long acting anti psychotic and refused. Psycho-education provided to family #Goals before discharge include: Decrease aggression, improve activities of daily living, medication compliance . Continued Medication Management: Start Medication Medications: Current Medications Acetaminophen (Tylenol Tab*) 650 mg PO Q4H PRN PRN Reason: for pain; or Temp >101 F Al Hydrox/Mg Hydrox/Simethicone (Maalox Plus*) 30 ml PO Q4H PRN PRN Reason: INDIGESTION Diphenhydramine HCl (Benadryl Po*) 50 mg PO Q6H PRN PRN Reason: AGITATION Last Admin: 04/22/18 18:56 Dose: 50 mg Haloperidol (Haldol Tab*) 5 mg PO Q6H PRN PRN Reason: AGITATION Last Admin: 04/22/18 18:57 Dose: 5 mg Lorazepam (Ativan Tab(*)) 2 mg PO Q6H PRN PRN Reason: ANXIETY Last Admin: 04/22/18 18:57 Dose: 2 mg Nicotine (Nicotine Inhaler*) 10 mg INH Q2H PRN PRN Reason: CRAVING Nicotine Polacrilex (Nicotine Gum*) 2 mg PO Q2H PRN PRN Reason: CRAVING Olanzapine (Zyprexa * Tab Odt) 5 mg PO BID [facility] Last Admin: 04/27/18 08:27 Dose: Not Given Propranolol HCl (Inderal Tab*) 5 mg PO TID [facility] Last Admin: 04/27/18 08:27 Dose: Not Given - Discharge Plan Discharge Plan: Inpatient Hospitalization
[2018-04-27] MEDS ORDERED: diPHENhydraMINE IV* 50 MG/ML 1 ml VIAL (BENADRYL) ONE (12:29)
[2018-04-27] MEDS ORDERED: Haloperidol INJ IV/IM* 5 MG/ML AMP ONE (12:30)
[2018-04-27] MEDS ORDERED: LORazepam INJ* 2 MG/ML 1 ML VIAL ONE (12:31)
[2018-04-27] MEDS ORDERED: LORazepam TAB(*) 1 MG PO ONE (12:40)
[2018-04-27] MEDS ORDERED: Haloperidol TAB* 5 MG PO ONE (12:40)
[2018-04-27] MEDS ORDERED: diPHENhydraMINE PO* 25 MG PO ONE (12:40)
[2018-04-27] MEDS: LORazepam TAB(*) 1 MG ONE ×2 (13:25→13:59)
[2018-04-27] MEDS: Haloperidol TAB* 5 MG ONE ×2 (13:26→14:00)
[2018-04-27] MEDS: diPHENhydraMINE PO* 50 MG ONE ×2 (13:26→14:00)
[2018-04-28] MEDS: OLANzapine TAB*ODT* 5 MG PO SCH ×2 (08:54→20:14)
[2018-04-28] MEDS: Propranolol TAB* 10 MG PO SCH ×3 (08:54→20:14)
--- NOTE | 2018-04-28 09:58 | PN ---
Subjective - Subjective Date of Service: 04/28/18 Service Type: [id number] Hosp care 35 min high complexity Subjective: Nursing Report: Patient was visible on unit, no chemical restraints or PRNs. Slept overnight. He is not attending group activities. CC: " I can only be here 14 days" Patient was seen and evaluated by this provider in the common room. He was observed eating breakfast. Per staff he has been inappropriately grabbing staff. The patient reported that he only can be here for 14 days and then by law has to leave. He reported that he wants to go by Thursday because it is his dogs birthday. He continues to refuse medications. He reported having an adequate appetite and sleep. The patient did participate in yoga class today. The patient is refusing to shower. He flipped over a table yesterday and took oral haldol 5mg and ativan 2mg. Objective - Appearance Dysmorphic Features: No Hygiene: Mal-odorous Grooming: Disheveled - Behavior Psychomotor Activities: Abnormal-Increased Exhibits Abnormal Movement: No - Attitude and Relatedness Attitude and Relatedness: Irritable Eye Contact: Poor - Speech Quality: Unpressured Latencies: Long Quantity: Terse - Mood Patient's Decription of Mood: "Irritable" - Affect Observed Affect: Constricted Affect Consistent with: Dysphoria - Thought Process Patient's Thought Process: Disorganized Thought Content: Yes Paranoid Ideation, No Passive Wish, No Suicidal Planning, No Homicidal Ideation - Sensorium Experiencing Hallucinations: Yes Type of Hallucinations: Visual: No, Auditory: Yes, Command: No - Level of Consciousness Level of Consciousness: Alert Orientation: Yes Intact, Yes Orientated to Time, Yes Orientated to Place, Yes Orientated to Person - Impulse Control Impulse Control: Impaired - Insight and Judgement Insight and Judgement: Impaired - Group Participation Particating in Group Activities: No - Medication Management Medication Management Adherence: No Assessment - Assessment Merits Inpatient Hospitalization: For Immediate Safety Clinical Impression: 22 year old male with prior hospitalization and refusing medications brought to the hospital after mobile crisis unit was called. He is refusing medications, to shower, and is responding to internal stimuli. Plan - Plan Treatment Plan: Name: VIRIDIANA ROJO Birthdate: 1995 [id number] # The patient requires inpatient admission at this time to assure safety, receive treatment and work toward stabilization. #Continue Q15 minute observation. #Continue propranolol 5mg TID # Continue Zyprexa 5mg BID # Awaiting date from the court for treatment over objection paperwork #Encourage shower and medication compliance #Offered long acting anti psychotic and refused. #Psycho-education provided to family PRN Haldol 5mg and ativan 2mg if patient presents a danger to himself and or to others. #Goals before discharge include: Decrease aggression, improve activities of daily living, medication compliance . Vital Signs Temp Pulse Resp BP Pulse Ox 97.9 F 89 16 156/81 100 04/28/18 07:40 04/28/18 07:40 04/28/18 07:40 04/28/18 07:40 04/28/18 07:40 Sodium 139 mmol/L (135-145) 04/20/18 19:28 Potassium 4.0 mmol/L (3.5-5.0) 04/20/18 19:28 BUN 25 mg/dL (6-24) H 04/20/18 19:28 Creatinine 1.10 mg/dL (0.67-1.17) 04/20/18 19:28 Hemoglobin A1c 5.4 % (4.0-5.6) 04/22/18 07:26 Calcium 9.4 mg/dL (8.6-10.3) 04/20/18 19:28 AST 40 U/L (13-39) H 04/26/18 07:41 ALT 48 U/L (7-52) 04/20/18 19:28 Triglycerides 106 mg/dL 04/22/18 07:26 Cholesterol 169 mg/dL 04/22/18 07:26 LDL Cholesterol 102 mg/dL 04/22/18 07:26 Continued Medication Management: Start Medication Medications: Current Medications Acetaminophen (Tylenol Tab*) 650 mg PO Q4H PRN PRN Reason: for pain; or Temp >101 F Al Hydrox/Mg Hydrox/Simethicone (Maalox Plus*) 30 ml PO Q4H PRN PRN Reason: INDIGESTION Diphenhydramine HCl (Benadryl Po*) 50 mg PO Q6H PRN PRN Reason: AGITATION Last Admin: 04/22/18 18:56 Dose: 50 mg Haloperidol (Haldol Tab*) 5 mg PO Q6H PRN PRN Reason: AGITATION Last Admin: 04/22/18 18:57 Dose: 5 mg Lorazepam (Ativan Tab(*)) 2 mg PO Q6H PRN PRN Reason: ANXIETY Last Admin: 04/22/18 18:57 Dose: 2 mg Nicotine (Nicotine Inhaler*) 10 mg INH Q2H PRN PRN Reason: CRAVING Nicotine Polacrilex (Nicotine Gum*) 2 mg PO Q2H PRN PRN Reason: CRAVING Olanzapine (Zyprexa * Tab Odt) 5 mg PO BID [facility] Last Admin: 04/28/18 08:54 Dose: Not Given Propranolol HCl (Inderal Tab*) 5 mg PO TID [facility] Last Admin: 04/28/18 08:54 Dose: Not Given - Discharge Plan Discharge Plan: Inpatient Hospitalization
--- NOTE | 2018-04-29 08:30 | PN ---
Subjective - Subjective Date of Service: 04/29/18 Service Type: [id number] Hosp care 35 min high complexity Subjective: Nursing Report: Patient was visible on unit, no chemical restraints or PRNs. Slept overnight. He is not attending group activities. CC: " I am so hungry" Patient was seen and evaluated by this provider in the common room. He was observed eating breakfast with peer. Per staff he continues to be sexually inappropriate. His mother called yesterday afternoon stating she wants to transfer him to a hospital on [address] or a place in [facility] that has CBT resources. He continues to refuse medications. He received a hair cut yesterday evening. He reported having an adequate appetite and sleep. The patient is continues to refuse to shower. Objective - Appearance Appearance: Healthy Appearing Dysmorphic Features: No Hygiene: Dirty Grooming: Disheveled - Behavior Psychomotor Activities: Normal Exhibits Abnormal Movement: No - Attitude and Relatedness Attitude and Relatedness: Superficially Cooperative Eye Contact: Poor - Speech Quality: Unpressured Latencies: Long Quantity: Terse - Mood Patient's Decription of Mood: "Okay" - Affect Observed Affect: Constricted Affect Consistent with: Euphoria - Thought Process Patient's Thought Process: Disorganized Thought Content: Yes Paranoid Ideation, No Passive Wish, No Suicidal Planning, No Homicidal Ideation - Sensorium Experiencing Hallucinations: No, Sensorium is Clear Type of Hallucinations: Visual: No, Auditory: Yes, Command: No - Level of Consciousness Level of Consciousness: Alert Orientation: Yes Intact, Yes Orientated to Time, Yes Orientated to Place, Yes Orientated to Person - Impulse Control Impulse Control: Impaired - Insight and Judgement Insight and Judgement: Impaired - Group Participation Particating in Group Activities: No - Medication Management Medication Management Adherence: No Assessment - Assessment Clinical Impression: 22 year old male with prior hospitalization and refusing medications brought to the hospital after mobile crisis unit was called. He is refusing medications, to shower, and is responding to internal stimuli. Plan - Plan Treatment Plan: Name: VIRIDIANA ROJO Birthdate: 1995 [id number] # The patient requires inpatient admission at this time to assure safety, receive treatment and work toward stabilization. #Continue Q15 minute observation. #Continue propranolol 5mg TID # Continue Zyprexa 5mg BID # Awaiting date from the court for treatment over objection paperwork #Encourage shower and medication compliance #Offered long acting anti psychotic and refused. #Psycho-education provided to family #Restrict visits from his mother as she is disruptive to his care. PRN Haldol 5mg and ativan 2mg if patient presents a danger to himself and or to others. #Goals before discharge include: Decrease aggression, improve activities of daily living, medication compliance . Continued Medication Management: Start Medication Medications: Current Medications Acetaminophen (Tylenol Tab*) 650 mg PO Q4H PRN PRN Reason: for pain; or Temp >101 F Al Hydrox/Mg Hydrox/Simethicone (Maalox Plus*) 30 ml PO Q4H PRN PRN Reason: INDIGESTION Diphenhydramine HCl (Benadryl Po*) 50 mg PO Q6H PRN PRN Reason: AGITATION Last Admin: 04/22/18 18:56 Dose: 50 mg Haloperidol (Haldol Tab*) 5 mg PO Q6H PRN PRN Reason: AGITATION Last Admin: 04/22/18 18:57 Dose: 5 mg Lorazepam (Ativan Tab(*)) 2 mg PO Q6H PRN PRN Reason: ANXIETY Last Admin: 04/22/18 18:57 Dose: 2 mg Nicotine (Nicotine Inhaler*) 10 mg INH Q2H PRN PRN Reason: CRAVING Nicotine Polacrilex (Nicotine Gum*) 2 mg PO Q2H PRN PRN Reason: CRAVING Olanzapine (Zyprexa * Tab Odt) 5 mg PO BID [facility] Last Admin: 04/28/18 20:14 Dose: Not Given Propranolol HCl (Inderal Tab*) 5 mg PO TID [facility] Last Admin: 04/28/18 20:14 Dose: Not Given - Discharge Plan Discharge Plan: Inpatient Hospitalization
[2018-04-29] MEDS: Propranolol TAB* 10 MG PO SCH ×3 (09:04→20:10)
[2018-04-29] MEDS: OLANzapine TAB*ODT* 5 MG PO SCH ×2 (09:04→20:10)
--- NOTE | 2018-04-30 11:12 | PN ---
Subjective - Subjective Date of Service: 04/30/18 Service Type: [id number] Hosp care 35 min high complexity Subjective: Nursing Report: Patient was visible on unit, no chemical restraints or PRNs. Slept overnight. He is not been attending group activities. Sexually inappropriate. CC: " I dont know why I am here" Patient was seen and evaluated by this provider in the common room. He was observed walking around the unit. He continues to be sexually inappropriate with female staff members. He continues to refuse medications. He reported having an adequate appetite and sleep. The patient is refusing to shower. He points to a magazine with cars and says what one do you like? He said " I do not know why I am here." He denied homicidal ideation, intent or plan. Objective - Appearance Appearance: Well Developed/Nourished Dysmorphic Features: No Hygiene: Dirty Grooming: Disheveled - Behavior Psychomotor Activities: Normal Exhibits Abnormal Movement: No - Attitude and Relatedness Attitude and Relatedness: Withdrawn Eye Contact: Poor - Speech Quality: Unpressured Latencies: Long Quantity: Terse - Mood Patient's Decription of Mood: "Fine" - Affect Observed Affect: Constricted Affect Consistent with: Dysphoria - Thought Process Patient's Thought Process: Disorganized Thought Content: Yes Paranoid Ideation, No Passive Wish, No Suicidal Planning, No Homicidal Ideation - Sensorium Experiencing Hallucinations: Yes Type of Hallucinations: Visual: No, Auditory: Yes, Command: No - Level of Consciousness Level of Consciousness: Alert Orientation: Yes Intact, Yes Orientated to Time, Yes Orientated to Place, Yes Orientated to Person - Impulse Control Impulse Control: Impaired - Insight and Judgement Insight and Judgement: Impaired - Group Participation Particating in Group Activities: No - Medication Management Medication Management Adherence: No Assessment - Assessment Merits Inpatient Hospitalization: For Immediate Safety Clinical Impression: 22 year old male with prior hospitalization and refusing medications brought to the hospital after mobile crisis unit was called. He is refusing medications, to shower, and is responding to internal stimuli. Plan - Plan Treatment Plan: Name: VIRIDIANA ROJO Birthdate: 1995 [id number] # The patient requires inpatient admission at this time to assure safety, receive treatment and work toward stabilization. #Continue Q15 minute observation. #Continue propranolol 5mg TID # Continue Zyprexa 5mg BID # Treatment over objection likely date for next week. #Encourage shower and medication compliance #Offered long acting anti psychotic and refused. #Psycho-education provided to family #2 PC #Limit contact with female staff #Restrict visits from his mother as she is disruptive to his care. PRN Haldol 5mg and ativan 2mg if patient presents a danger to himself and or to others. #Goals before discharge include: Decrease aggression, improve activities of daily living, medication compliance . Sodium 139 mmol/L (135-145) 04/20/18 19:28 Potassium 4.0 mmol/L (3.5-5.0) 04/20/18 19:28 BUN 25 mg/dL (6-24) H 04/20/18 19:28 Creatinine 1.10 mg/dL (0.67-1.17) 04/20/18 19:28 Hemoglobin A1c 5.4 % (4.0-5.6) 04/22/18 07:26 Calcium 9.4 mg/dL (8.6-10.3) 04/20/18 19:28 AST 40 U/L (13-39) H 04/26/18 07:41 ALT 48 U/L (7-52) 04/20/18 19:28 Triglycerides 106 mg/dL 04/22/18 07:26 Cholesterol 169 mg/dL 04/22/18 07:26 LDL Cholesterol 102 mg/dL 04/22/18 07:26 Vital Signs Temp Pulse Resp BP Pulse Ox 98.1 F 85 16 124/83 98 04/29/18 08:03 04/30/18 07:36 04/29/18 12:31 04/30/18 07:36 04/30/18 07:36 Continued Medication Management: Start Medication Medications: Current Medications Acetaminophen (Tylenol Tab*) 650 mg PO Q4H PRN PRN Reason: for pain; or Temp >101 F Al Hydrox/Mg Hydrox/Simethicone (Maalox Plus*) 30 ml PO Q4H PRN PRN Reason: INDIGESTION Diphenhydramine HCl (Benadryl Po*) 50 mg PO Q6H PRN PRN Reason: AGITATION Last Admin: 04/22/18 18:56 Dose: 50 mg Haloperidol (Haldol Tab*) 5 mg PO Q6H PRN PRN Reason: AGITATION Last Admin: 04/22/18 18:57 Dose: 5 mg Lorazepam (Ativan Tab(*)) 2 mg PO Q6H PRN PRN Reason: ANXIETY Last Admin: 04/22/18 18:57 Dose: 2 mg Nicotine (Nicotine Inhaler*) 10 mg INH Q2H PRN PRN Reason: CRAVING Nicotine Polacrilex (Nicotine Gum*) 2 mg PO Q2H PRN PRN Reason: CRAVING Olanzapine (Zyprexa * Tab Odt) 5 mg PO BID [facility] Last Admin: 04/29/18 20:10 Dose: Not Given Propranolol HCl (Inderal Tab*) 5 mg PO TID [facility] Last Admin: 04/29/18 20:10 Dose: Not Given - Discharge Plan Discharge Plan: Inpatient Hospitalization
[2018-04-30] MEDS: OLANzapine TAB*ODT* 5 MG PO SCH ×2 (11:25→22:37)
[2018-04-30] MEDS: Propranolol TAB* 10 MG PO SCH ×3 (11:25→22:37)
[2018-04-30] MEDS ORDERED: diPHENhydraMINE IV* 50 MG/ML 1 ml VIAL (BENADRYL) ONE (19:05)
[2018-04-30] MEDS ORDERED: LORazepam INJ* 2 MG/ML 1 ML VIAL ONE (19:06)
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
[2018-04-30] MEDS ORDERED: diPHENhydraMINE IV* 50 MG/ML 1 ml VIAL (BENADRYL) IM ONE (20:10)
[2018-04-30] MEDS ORDERED: Haloperidol INJ IV/IM* 5 MG/ML AMP IM ONE (20:10)
[2018-04-30] MEDS ORDERED: LORazepam INJ* 2 MG/ML 1 ML VIAL IM ONE (20:10)
[2018-05-01] MEDS: OLANzapine TAB*ODT* 5 MG PO SCH ×2 (07:14→20:51)
[2018-05-01] MEDS: Propranolol TAB* 10 MG PO SCH ×3 (07:14→20:51)
[2018-05-02] MEDS ORDERED: LORazepam INJ* 2 MG/ML 1 ML VIAL ONE (06:41)
[2018-05-02] MEDS ORDERED: Haloperidol INJ IV/IM* 5 MG/ML AMP ONE (06:41)
[2018-05-02] MEDS ORDERED: diPHENhydraMINE IV* 50 MG/ML 1 ml VIAL (BENADRYL) ONE (06:41)
[2018-05-02] MEDS ORDERED: diPHENhydraMINE IV* 50 MG/ML 1 ml VIAL (BENADRYL) IM ONE (07:00)
[2018-05-02] MEDS ORDERED: Haloperidol INJ IV/IM* 5 MG/ML AMP IM ONE (07:00)
[2018-05-02] MEDS ORDERED: LORazepam INJ* 2 MG/ML 1 ML VIAL IM ONE (07:00)
--- NOTE | 2018-05-02 07:37 | PROCNOTE ---
- Assessment for Patient Restraint Evaluation of the Patient's Immediate Situation: Pt is calm, cooperative in his room, leather restraints are off. Pt has no complaints Patient's Reaction to Intervention: see above Patient's Medication and Behavioral Condition: Pt received IM Ativan/Benadryl/Haldol ordered by the psychiatrist Evaluate Need for Continued Restraint: Terminate
[2018-05-02] MEDS: OLANzapine TAB*ODT* 5 MG PO SCH ×2 (12:47→22:02)
[2018-05-02] MEDS: Propranolol TAB* 10 MG PO SCH ×3 (12:47→22:02)
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
[2018-05-03] MEDS: Propranolol TAB* 10 MG PO SCH ×3 (08:51→22:02)
[2018-05-03] MEDS: OLANzapine TAB*ODT* 5 MG PO SCH ×3 (08:51→22:02)
[2018-05-03] MEDS ORDERED: Olanzapine INJ(NF) 10 MG VIAL IM SCH (21:00)
[2018-05-04] MEDS ORDERED: OLANzapine TAB*ODT* 5 MG PO SCH (09:00)
[2018-05-04] MEDS: OLANzapine TAB*ODT* 5 MG PO SCH (10:15)
[2018-05-04] MEDS: Olanzapine INJ(NF) 10 MG VIAL IM SCH (11:11)
[2018-05-04] MEDS: Propranolol TAB* 10 MG PO SCH ×3 (11:12→20:03)
--- NOTE | 2018-05-04 14:53 | PN ---
Subjective - Subjective Date of Service: 05/04/18 Service Type: [id number] Hosp care 35 min high complexity Subjective: Nursing Report: Patient was visible on unit, no chemical restraints or PRNs overnight . Slept overnight without incident. He continues to be sexually inappropriate. CC: "I want to see my dog" Patient was seen and evaluated in the common room. He was observed walking around the unit. He took oral zyprexa 10mg PO on his own. The patient reported he is hungry. He reported having an adequate appetite and sleep. Patient is tolerating medications without side effects. Patient refused to answer any other questions. Objective - Appearance Dysmorphic Features: No Hygiene: Mal-odorous Grooming: Disheveled - Behavior Psychomotor Activities: Normal Exhibits Abnormal Movement: No - Attitude and Relatedness Attitude and Relatedness: Dismissive Eye Contact: Fair - Speech Quality: Unpressured Latencies: Long Quantity: Terse - Mood Patient's Decription of Mood: "Fine" - Affect Observed Affect: Constricted Affect Consistent with: Euphoria - Thought Process Patient's Thought Process: Impoverished Thought Content: No Passive Wish, No Suicidal Planning, No Homicidal Ideation, No Paranoid Ideation - Sensorium Experiencing Hallucinations: No, Sensorium is Clear Type of Hallucinations: Visual: No, Auditory: No, Command: No - Level of Consciousness Level of Consciousness: Alert Orientation: Yes Intact, Yes Orientated to Time, Yes Orientated to Place, Yes Orientated to Person - Impulse Control Impulse Control: Impaired - Insight and Judgement Insight and Judgement: Impaired - Group Participation Particating in Group Activities: No - Medication Management Medication Management Adherence: Partial Assessment - Assessment Clinical Impression: 22 year old male with prior hospitalization he has been responding to internal stimuli sexually preoccupied and a behavioral issue. Plan - Plan Treatment Plan: Name: VIRIDIANA ROJO Birthdate: 1995 [id number] # The patient requires inpatient admission at this time to assure safety, receive treatment and work toward stabilization. #Continue Q15 minute observation. #Continue propranolol 5mg TID # Zyprexa 10mg daily PO Zydis ODT tab if refuses give IM 10mg. Do not give in combination with IM benzodiazepines #Encourage shower and medication compliance #Offered long acting anti psychotic and refused. #Psycho-education provided to family and LASHAUN support #Limit contact with female staff #Restrict visits from his mother as she is disruptive to his care. #Patient seems sedated from zyprexa will plan to change at night time if sedation does not remit. #Observe anti psychotic tolerance and plan for long acting injection before discharge. If no improvement of behavior in the next couple of days will begin process of transferring to [facility]. #Goals before discharge include: Decrease aggression, improve activities of daily living, medication compliance . Vital Signs Temp Pulse Resp BP Pulse Ox 98.3 F 91 16 132/78 100 05/04/18 07:43 05/04/18 07:43 05/04/18 13:56 05/04/18 07:43 05/04/18 07:43 Sodium 139 mmol/L (135-145) 04/20/18 19:28 Potassium 4.0 mmol/L (3.5-5.0) 04/20/18 19:28 BUN 25 mg/dL (6-24) H 04/20/18 19:28 Creatinine 1.10 mg/dL (0.67-1.17) 04/20/18 19:28 Hemoglobin A1c 5.4 % (4.0-5.6) 04/22/18 07:26 Calcium 9.4 mg/dL (8.6-10.3) 04/20/18 19:28 AST 40 U/L (13-39) H 04/26/18 07:41 ALT 48 U/L (7-52) 04/20/18 19:28 Triglycerides 106 mg/dL 04/22/18 07:26 Cholesterol 169 mg/dL 04/22/18 07:26 LDL Cholesterol 102 mg/dL 04/22/18 07:26 Continued Medication Management: Start Medication Medications: Current Medications Acetaminophen (Tylenol Tab*) 650 mg PO Q4H PRN PRN Reason: for pain; or Temp >101 F Al Hydrox/Mg Hydrox/Simethicone (Maalox Plus*) 30 ml PO Q4H PRN PRN Reason: INDIGESTION Diphenhydramine HCl (Benadryl Po*) 50 mg PO Q6H PRN PRN Reason: AGITATION Last Admin: 04/22/18 18:56 Dose: 50 mg Haloperidol (Haldol Tab*) 5 mg PO Q6H PRN PRN Reason: AGITATION Last Admin: 02/21/19 18:57 Dose: 5 mg Lorazepam (Ativan Tab(*)) 2 mg PO Q6H PRN PRN Reason: ANXIETY Last Admin: 04/22/18 18:57 Dose: 2 mg Olanzapine (Zyprexa Inj(Nf)) 10 mg IM DAILY [facility]; Protocol Last Admin: 05/04/18 11:11 Dose: Not Given Olanzapine (Zyprexa * Tab Odt) 10 mg PO DAILY [facility] Last Admin: 05/04/18 10:15 Dose: 10 mg Propranolol HCl (Inderal Tab*) 5 mg PO TID [facility] Last Admin: 05/04/18 11:12 Dose: Not Given - Discharge Plan Discharge Plan: Inpatient Hospitalization
[2018-05-05] MEDS: OLANzapine TAB*ODT* 5 MG PO SCH (08:25)
[2018-05-05] MEDS: FLUoxetine CAP* 20 MG PO SCH (08:31)
[2018-05-05] MEDS: Olanzapine INJ(NF) 10 MG VIAL IM SCH (08:32)
[2018-05-05] MEDS: Propranolol TAB* 10 MG PO SCH ×3 (09:26→20:43)
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
[2018-05-06] MEDS: OLANzapine TAB*ODT* 5 MG PO SCH (07:54)
[2018-05-06] MEDS: Olanzapine INJ(NF) 10 MG VIAL IM SCH (08:00)
[2018-05-06] MEDS: Propranolol TAB* 10 MG PO SCH ×3 (08:24→20:31)
[2018-05-06] MEDS: FLUoxetine CAP* 20 MG PO SCH (08:24)
[2018-05-06] MEDS ORDERED: LORazepam INJ* 2 MG/ML 1 ML VIAL ONE (09:24)
[2018-05-06] MEDS ORDERED: Haloperidol INJ IV/IM* 5 MG/ML AMP ONE (09:24)
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
[2018-05-06] MEDS ORDERED: diPHENhydraMINE IV* 50 MG/ML 1 ml VIAL (BENADRYL) IM ONE (14:15)
[2018-05-06] MEDS ORDERED: Haloperidol Decanoate* 50 MG/ML AMP IM ONE (15:00)
[2018-05-07] MEDS: Propranolol TAB* 10 MG PO SCH (09:55)
[2018-05-07] MEDS: FLUoxetine CAP* 20 MG PO SCH (09:55)
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
[2018-05-07] MEDS ORDERED: Benztropine TAB* 1 MG PO PRN (11:50)
[2018-05-08] MEDS: FLUoxetine CAP* 20 MG PO SCH (09:52)
[2018-05-08] MEDS: Haloperidol TAB* 5 MG PO SCH (09:52)
[2018-05-08] MEDS: Propranolol TAB* 10 MG PO SCH (09:52)
[2018-05-09] MEDS: FLUoxetine CAP* 20 MG PO SCH (10:47)
[2018-05-09] MEDS: Haloperidol TAB* 5 MG PO SCH (10:47)
[2018-05-09] MEDS: Propranolol TAB* 10 MG PO SCH (10:47)
[2018-05-10] MEDS: Propranolol TAB* 10 MG PO SCH (10:36)
[2018-05-10] MEDS: Haloperidol TAB* 5 MG PO SCH (10:40)
[2018-05-10] MEDS: FLUoxetine CAP* 20 MG PO SCH (10:40)
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
[2018-05-10] MEDS: Haloperidol TAB* 5 MG PO PRN (18:34)
[2018-05-10] MEDS: LORazepam TAB(*) 1 MG PO PRN (18:34)
[2018-05-10] MEDS: diPHENhydraMINE PO* 50 MG PO PRN (19:16)
[2018-05-11] MEDS: FLUoxetine CAP* 20 MG PO SCH (09:50)
[2018-05-11] MEDS: Propranolol TAB* 10 MG PO SCH (09:50)
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
[2018-05-11 13:05] VITALS: BP 142/83
[2018-05-12] MEDS ORDERED: Diazepam TAB(*) 10 MG ONE (07:26)
[2018-05-12] MEDS: FLUoxetine CAP* 20 MG PO SCH (07:27)
[2018-05-12] MEDS ORDERED: Diazepam TAB(*) 10 MG PO ONE (07:43)
[2018-05-12] MEDS: Propranolol TAB* 10 MG PO SCH (07:56)
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
== END 2018-05-12 08:49 | DRG 885 ==
LOC: ED 19:00 → BSU 04-21 11:01
PROVIDERS: ADMIT Psychiatry & Neurology Psychiatry; ATTEND Psychiatry & Neurology Psychiatry
DX: F29 Unspecified psychosis not due to a substance or known physiological condition (principal); F63.9 Impulse disorder, unspecified; F81.89 Other developmental disorders of scholastic skills; F20.9 Schizophrenia, unspecified; F90.9 Attention-deficit hyperactivity disorder, unspecified type; F41.1 Generalized anxiety disorder; F12.11 Cannabis abuse, in remission; F10.10 Alcohol abuse, uncomplicated; J30.1 Allergic rhinitis due to pollen; Z87.820 Personal history of traumatic brain injury; Z81.8 Family history of other mental and behavioral disorders
CPT/HCPCS: 36415; 80053; 80061; 80074; 80307; 80320; 80329; 81003; 82140; 82607; 82746; 83036; 84443; 84450; 85025; 86592; 86703; 93005; 99222; 99231; 99232; 99233; 99238; 99284; A9270-GY; G0480; J1200; J1630; J1631; J2060